=== PATIENT | female | born 1990 | race Caucasian/White ===

== ENCOUNTER → 2017-09-11 16:00 | Outpatient (CLI) | payer MEDICAID, SELFPAY ==
[2017-09-12 13:52] LABS: Group B Strep DNA By PCR Negative (Negative); Internal Control PASS; Probe Check PASS; Specimen Processing Control PASS
== END ==
PROVIDERS: Visit Provider Obstetrics & Gynecology
DX: Z36.85 Encounter for antenatal screening for Streptococcus B (principal)
CPT/HCPCS: 87081; 87653

== ENCOUNTER 2017-10-03 06:40 | Inpatient (IN) | payer MEDICAID, SELFPAY ==
[2017-10-03] MEDS: Lactated Ringers 1,000 ML 50 ML IV (07:20)
[2017-10-03 07:46] VITALS: BMI 37.7
[2017-10-03 07:48] LABS: Hematocrit 36.9 % (37-47); Hemoglobin 13.1 g/dl (12.0-15.0); Mean Corp Hgb Conc 35.5 g/gl (32-36); Mean Corpuscular Hgb 33.2 pg (27.0-32.0); Mean Corpuscular Volume 93.7 fL (81-99); Mean Platelet Vol. 11.4 fl (6.2-12.0); Platelet Count 148 K/mm3 (150-450); RBC Distribution Width CV 12.9 % (11.6-14.6); RBC Distribution Width SD 42.9 fl (35.1-43.9); Red Blood Count 3.94 M/mm3 (4.2-5.4); White Blood Count 12.3 K/mm3 (4.4-11.0)
[2017-10-03] MEDS: Oxytocin 30 units/NS 500 ml 30 UNITS/500 ML IV.SOLN IV (07:54)
[2017-10-03 07:55] LABS: Scan Indicated on CBC? Y/N NO
[2017-10-03] MEDS: fentaNYL-bupivacaine (epidural) 100 ML BAG EPIDURAL (10:50)
[2017-10-03] MEDS: Oxytocin 30 units/NS 500 ml 30 UNITS/500 ML IV.SOLN 334 UNITS IV (12:20)
--- NOTE | 2017-10-03 12:30 | PCM.OB.VAG ---
Vaginal Delivery Maternal Presentation: Elective Induction Method of Induction: Pitocin, Amniotomy Amniotic Membrane Rupture Type: Artificial Amniotic Fluid Description: Clear Final ERASMO: 10/09/17 Final ERASMO Source: US <20 weeks Gestational age: 39 Weeks and 1 Days Date of Procedure: 10/03/17 Pre-Operative Diagnosis: IUP Post-Operative Diagnosis: IUP, Posterior Presentation Surgery/ Procedure Performed: Spontaneous Vaginal Delivery Type of Anesthesia: Epidural Description of Procedure: Spontaneous vaginal delivery of a viable female with Apgars of 8/9 from an occiput posterior presentation with clear amniotic fluid and cord around the neck ?1 loose. No episiotomy or laceration. Sponge counts okay. Delivery physician: Scar Sanchez MD. Presentation: Vertex, ROP Placental Delivery Description: Spontaneous Placenta Disposition: [facility] Cord Vessel Description: 3 Vessels Cord Gases drawn per routine: ABG Cord Entanglement: Around neck x 1, loose Estimated Blood Loss: 250 cc Infant A gender: Female (1 minute): 8 (5 minute): 9 Episiotomy Description: None Laceration: None Medications given after delivery: IV Pitocin Complications: None
--- NOTE | 2017-10-03 12:34 | PCM.DCVAG ---
Discharge Diet: No Restrictions Discharge Activity: May Shower, May Take a Tub Bath May resume sexual activity in: 4-6 weeks Additional Activity Instructions:: Nothing in the vagina for 4-6 weeks. You may return to work/school in 6 weeks. Call your doctor if you observe: Fever of 101 or Higher, Inability to urinate, Inability to have a bowel movement, Using more than one pad per hour Additional Instructions: If you experience any of the following, contact your healthcare provider. Bleeding that soaks a pad every hour for 2 hours Unrelieved incision or abdominal pain Swelling, redness, discharge or bleeding from your incision or episiotomy site Your incision begins to separate Problems urinating (including inability to urinate or burning while urinating). Visual changes Severe headache Flu-like symptoms Pain or redness in one of both of your breasts Pain, warmth, tenderness or swelling in your legs, especially the calf area Frequent nausea and vomiting Symptoms of depression or anxiety If you experience any of the following, call 911 or go to the nearest Emergency Room. Chest pain Problems breathing Seizure activity Partial or complete paralysis of a body part, slurred speech, weakness or drooping of the face, or a sudden inability to walk or hold your balance Allergies/Adverse Reactions: Allergies No Known Allergies Allergy (Verified 10/03/17 07:46) Please Follow Up With: Scar Sanchez MD - [phone] When: Call to make an appointment with your doctor in 6 weeks. Primary Care Physician: Care Physician,No Primary [Primary Care Provider] -
--- NOTE | 2017-10-03 12:36 | DCINST_ITS ---
Discharge Diet: No Restrictions Discharge Activity: May Shower, May Take a Tub Bath May resume sexual activity in: 4-6 weeks Additional Activity Instructions:: Nothing in the vagina for 4-6 weeks. You may return to work/school in 6 weeks. Call your doctor if you observe: Fever of 101 or Higher, Inability to urinate, Inability to have a bowel movement, Using more than one pad per hour Additional Instructions: If you experience any of the following, contact your healthcare provider. * Bleeding that soaks a pad every hour for 2 hours * Unrelieved incision or abdominal pain * Swelling, redness, discharge or bleeding from your incision or episiotomy site * Your incision begins to separate * Problems urinating (including inability to urinate or burning while urinating) . * Visual changes * Severe headache * Flu-like symptoms * Pain or redness in one of both of your breasts * Pain, warmth, tenderness or swelling in your legs, especially the calf area * Frequent nausea and vomiting * Symptoms of depression or anxiety If you experience any of the following, call 911 or go to the nearest Emergency Room. * Chest pain * Problems breathing * Seizure activity * Partial or complete paralysis of a body part, slurred speech, weakness or drooping of the face, or a sudden inability to walk or hold your balance Allergies/Adverse Reactions: Allergies No Known Allergies Allergy (Verified 10/03/17 07:46) Please Follow Up With: Scar Sanchez MD - [phone] When: Call to make an appointment with your doctor in 6 weeks. Primary Care Physician: Care Physician,No Primary [Primary Care Provider] -
[2017-10-03] MEDS: Oxytocin 30 units/NS 500 ml 30 UNITS/500 ML IV.SOLN 167 UNITS IV (12:50)
[2017-10-03 15:08] VITALS: BP 122/74; PULSE 64; RESP 16; TEMP 36.6; O2SAT 99
[2017-10-03 16:00] VITALS: BP 106/57; PULSE 69; RESP 18; TEMP 36.6
[2017-10-03] MEDS: Ibuprofen 600 MG Tablet PO (17:34)
--- NOTE | 2017-10-03 18:09 | NURSING ---
1750 Patient states she no longer wants to breast feed, switching to bottle. Huddle done. Patient chooses to bottle feed.
[2017-10-03 20:00] VITALS: BP 112/55; PULSE 75; RESP 16; TEMP 36.7; O2SAT 98
[2017-10-03] MEDS: Acetaminophen 500 MG Tablet 1000 MG PO (21:05)
[2017-10-04 00:40] VITALS: BP 107/55; PULSE 71; RESP 18; TEMP 36.6; O2SAT 99
[2017-10-04] MEDS: Ibuprofen 600 MG Tablet PO ×3 (00:49→13:46)
[2017-10-04 04:15] VITALS: BP 104/59; PULSE 64; RESP 18; TEMP 36.4; O2SAT 98
[2017-10-04 07:25] VITALS: BP 113/89; PULSE 76; RESP 18; TEMP 36
--- NOTE | 2017-10-04 12:11 | PCM.PN.OB ---
Subjective: Patient without complaints. Tolerating diet well. Breast-feeding going well. Wants to go home today. - Physical Exam Vital Signs Temp Pulse Resp BP Pulse Ox 96.8 F L 76 18 113/89 H 98 10/04/17 07:25 10/04/17 07:25 10/04/17 07:25 10/04/17 07:25 10/04/17 04:15 Oxygen Delivery Method Room Air Weight: 241 lb Body Mass Index (BMI) 37.7 Intake and Output for Last 24 Hours 10/02/17 10/03/17 10/04/17 23:59 23:59 23:59 Intake Total 450 / 450 Output Total 1150 / 1150 Balance -700 / -700 Medical Necessity - Tobacco Use Smoking Status: Current every day smoker Assessment/Plan Doing well. Will release to home with routine instructions.
[2017-10-04 13:45] VITALS: BP 97/55; PULSE 79; RESP 18; TEMP 36.2
--- NOTE | 2017-10-04 14:56 | CASEMGMT ---
Social Work Assessment Labor and Delivery Unit Date of Referral: 10/03/2017 Time of Referral: 234 Referred By: Dr. Shukla, reeling machine setup operator Date of Intervention: 10/04/2017 Time of Intervention: 1245 Reason for Referral: maternal mental health, history of depression History obtained from: medical record and patient/mother of baby (MOB) Household composition: MOB, MOBs children and MOBs sister. MOB reports home situation is safe and adequate. Patient's parent/guardian status: MOB and father of baby (FOB) are not currently together. MOB reports broke up with FOB, Dov Esparza a month ago. MOB had been with FOB for 5 years. MOB reports FOB is the father to and to MOBs second child. MOBs first child has a different father, who MOB has shared parenting with that alfredo father. MOBs minor children are: Ap Saucedo (born 01/2014) and daughter Herrera (born 02/2011). Medical History: MOB is G3, P2 to 3, seeking care at 6 weeks gestation. Babys weight is 7 pounds 1 ounce, with Apgars 8 and 9 at 1 and 5 minutes of life. Educational Status: MOB graduated high school, is able to read, to write and to understand what is read. 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 SOBEIDA has 13 weeks of short term disability available for maternity leave. MOB reports will start to get payments soon. In the meantime, MOBs mother, FOB, and MOBs sister (with whom SOBEIDA lives) are helping out financially. Supplies: MOB reports to have car seat, pack-n-play with bassinet attachment, crib, clothing, diapers, wipes, and bottles. MOB reports to need formula, but that MOBs mom will help out until MOB can get on WIC. Childcare/Caregiver(s): MOB Transportation: No reported issues. Programs/Agencies Involved: MOB has Medicaid through [facility], plans to apply for food, and plans to reestablish with WIC. MOB reports was on WIC but missed some appointments during . MOB reports current counseling with Vincent Cee at [facility] in [place]. Children Services/Legal Issues: MOB denies any past or present involvement for self with children services. Behavioral Health Issues: MOB reports history of depression after first daughter was born. MOB was a teenager at the time. MOB reports no depression after son was born however. MOB reports to have some history of anxiety. MOB denies any history or current thoughts of suicide or harm to others. MOB reports was in counseling at [facility] for a year, and just about a month ago reestablished care due to some stressors/lifes changes happening in MOBs life. It is reported that MOBs mother has a history of depression after each . MOB denies any alcohol or illicit drug use during this . MOB reports has tried marijuana in the past. MOB reports did smoke cigarettes during . MOB had negative drug screens during on 02-16-2017 and 03-15-17. Family/Social Stressors: MOB reports she and FOB broke up a month ago after 5 years of being in a relationship. MOB reports there were some infidelity issues on FOBs part, as well as MOB suspecting drug use in the FOB. MOB reports it has been a relief not to have FOB in daily life, but that FOB still comes to the house to visit the kids. MOB reports will only allow visits at MOBs home as MOB wants to be able to monitor interactions and visits. MOB reports safety of her kids are more important than hurting FOBs feelings. Support Systems: MOB reports to have a large support network from family. MOB reports to live in close proximity to several family members, including MOBs mother. MOB reports MOBs mom and best friend BJ are MOBs biggest practical helpers and MOBs sisters, best friend and counselor are emotional supporters. However, MOB reports it is MOBs mother that encouraged MOB to restart counseling in light of MOBs breakup with FOB and risk for depression. Depression/Shaken Baby/Safe Sleeping: MOB aware of and able to identify safe sleeping and shaken baby prevention. MOB listened to education on depression and anxiety, risk factors present and importance of seeking out help and support. ASSESSMENT: MOB pleasant, friendly, cooperative, and nondefensive during social work visit. MOB spontaneous in conversation, bright affect, and happy mood. MOB able to identify positive support system, is aware of risk for depression and with the help and support of MOBs mom has already started counseling. MOB reports to have a positive larsen with baby. This life underwriter observed MOB attentive to infant, smiling, gazing, touching baby, and overall appropriate. MOB reports to have needed supplies, and that MOBs mom will help MOB get some formula until MOB can get into WIC. MOB accepting of resource information offered to MOB this date. Note, MOBs mother was present for part of social work visit with MOBs permission. MOBs mother presents as supportive and encouraging of MOB. Intervention: Provided MOB with information on depression and anxiety, tips on self-care, online supports, and local supports. Provided with [facility] list of social research assistant agencies. Provided WIC application. PLAN: MOB and baby to home with family support in place. MOB has mental health counselor and states intention to follow through after discharge. No other services requested or indicated. -KRIS Rosenbaum, AJ
== END 2017-10-04 14:35 | disposition home or self-care (01) | DRG 373 ==
PROVIDERS: Admitting Provider Obstetrics & Gynecology; Visit Provider Obstetrics & Gynecology
DX: O69.81X0 Labor and delivery complicated by cord around neck, without compression, not applicable or unspecified (principal); O99.334 Smoking (tobacco) complicating childbirth; F17.200 Nicotine dependence, unspecified, uncomplicated; Z3A.39 39 weeks gestation of pregnancy; Z37.0 Single live birth
CPT/HCPCS: 59025; 59050; 85027; 86850; 86900; 99218; J7120; G0378

== ENCOUNTER 2019-03-08 10:18 | Emergency (ER) | payer SELFPAY ==
[2019-03-08 10:19] VITALS: BP 124/74; PULSE 116; RESP 20; TEMP 36.8; O2SAT 98; BMI 37.2
--- NOTE | 2019-03-08 10:39 | ED.VISSUMM ---
- ER Visit Summary Date of Service: 03/08/19 Chief Complaint: Low back pain History of Present Illness: The patient is a 28 F no seen in past medical history and only prior surgical history is tonsillectomy. She is never had any back or neck surgery. She states since morning she is low back pain. Now is radiating to both legs. She denies any bowel or bladder incontinence. She is urinating normally. She denies any dysuria or fever. Physical Examination: Signs are stable and afebrile. H EENT exam unremarkable. Neck nontender. Lungs clear to auscultation bilaterally. Heart regular rate and rhythm no murmur. Abdomen soft nontender normal bowel sounds no peritoneal signs. Back exam cervical thoracic spine nontender. Lumbar spine joint nontender. There is no ecchymosis or bruising. No signs of trauma. No redness or warmth. No bony abnormality. Paraspinal soft tissue tenderness over the lower lumbar spine consistent with paraspinal muscle spasm. She is moving all 4 extremities. They are neurovascularly intact. Dorsi plantarflexion intact. She has normal bed and breakfast cook strength. She has normal sensation. There is no cauda equina or saddle anesthesia. She has normal medial thigh sensation. Patient has a positive straight leg raise both on the left and right leg when I asked her to actively do it she will raise him about 15 degrees because of pain an MRI doing at 15 to 30 degrees she has pain she states her pain down her buttocks and posterior hamstrings. Neurologically she is awake alert with no focal motor or sensory deficits. Test Results: Patient reportedly had an MRI done of her lumbar spine at [facility] on I am trying to get those results. Plain films done in outside facility showed no acute abnormality. A lumbar spine MRI done within the last 2 days showed degenerative disc disease and annular bulging of the L3-4 and disc degeneration at L4-5 and L5-S1. The spinal canal was patent and there is no signs of cauda equina. No abscess. I did discuss all these results with the patient and her significant other. Emergency Department Course and Treatment: Patient treated with p.o. Valium for muscle spasm and Toradol IM for pain. Her last menstrual period was this past week. Treatment Plan: Medrol Dosepak. Limited Motrin for pain. Valium for muscle relaxant. Follow-up with orthopedics. Disposition: Discharge Impression: Neck pain secondary to degenerative disc disease This note was generated with [employer] dictation software. It may contain incorrect words, spelling, and punctuation that were not noted in review of the chart prior to signing ED Disposition - Plan for ED Patient: Referrals: Care Physician,No Primary [Primary Care Provider] -
[2019-03-08] MEDS: diazePAM 5 MG Tablet 10 MG PO (11:00)
[2019-03-08] MEDS: Ketorolac 60 MG/2 ML Vial IM (11:00)
--- NOTE | 2019-03-08 11:14 | ED.DEP ---
ED Disposition - Plan for ED Patient: Disposition: Home or Assisted Living Instructions: BACK AND NECK PAIN, General Prescriptions: MethylPREDNISolone DosePak [Medrol DosePak] 4 mg PO UD #1 box Prescription Printed Diazepam [Valium] 5 mg PO 4X/DAY PRN PRN 7 Days #20 tab PRN Reason: Muscle Spasm Prescription Printed Referrals: Jas Avalos DO [STAFF PHYSICIAN] - As soon as possible Additional Instructions: Valium for muscle spasms. Medrol Dosepak to decrease the inflamed disks in your lower back. Motrin for pain and Tylenol. Follow-up with a orthopedic back doctor or neurosurgeon for further evaluation of your degenerative disc disease.
== END 2019-03-08 11:37 | disposition home or self-care (01) ==
PROVIDERS: Emergency Provider Emergency Medicine
DX: M51.37 Other intervertebral disc degeneration, lumbosacral region (principal); Z72.0 Tobacco use
CPT/HCPCS: 96372; 99283

== ENCOUNTER 2023-02-02 13:00 | Emergency (ER) | payer OTHER, SELFPAY ==
[2023-02-02 13:01] VITALS: BP 115/70; PULSE 108; RESP 18; TEMP 36.1; O2SAT 100; BMI 39.6
[2023-02-02 13:06] VITALS: BP 115/70; PULSE 81; RESP 16; TEMP 36.6
--- NOTE | 2023-02-02 14:05 | EDS_ITS ---
HPI History of Present Illness Chief Complaint: Abscess Informant: patient Narrative Narrative: Patient has a history of skin abscesses and she has 3 more. 1 on the right abdominal wall, 1 in the left groin those have been there for maybe a week or less, and the largest 1 in the right medial thigh has been there for only 2 days and is very big and sore. Not draining spontaneously. No fevers or chills or other systemic symptoms. [facility] Medical History (Updated 02/02/23 @ 14:[address] Ike Helms MD) Hidradenitis suppurativa Stomach ulcer Home Medications amoxicillin 875 mg-potassium clavulanate 125 mg tablet 1 tab PO Q12H 10 days #20 tabs 01/25/23 [Rx Last Taken Unknown] sulfamethoxazole 800 mg-trimethoprim 160 mg tablet 1 tab PO BID #20 TABLETS 02/02/23 [Rx Last Taken Unknown] Allergy/AdvReac Type Severity Reaction Status Date / Time No Known Allergies Allergy Verified 02/02/23 13:04 Surgical History (Updated 01/25/23 @ 10:18 by Brigid Lockwood) History of tonsillectomy Social History Smoking Status: Current every day smoker tobacco type: cigarettes alcohol intake: never ROS ROS ED Constitutional Constitutional ED: Denies chills or fever(s) Integumentary Reports abscess EXAM Physical Exam Const Vital Signs: 02/02/23 13:01 02/02/23 13:06 Temperature 96.9 F L 97.9 F Temperature Source Temporal Oral Pulse Rate 108 H 81 Respiratory Rate 18 16 Blood Pressure 115/70 115/70 Blood Pressure Mean 85 85 Pulse Ox 100 Oxygen Delivery Method Room Air Positive well nourished, well developed and obese General Appearance ED: well developed and NAD Nutritional Appearance: obese HEENT Reports moist mucous membranes Eyes PERRL and EOMs intact bilaterally Neck supple Resp normal respiratory effort Effort and Inspection: able to speak in complete sentences Neuro oriented x3, CN's II-XII intact bilaterally and no sensory deficits noted Psych mental status grossly normal Skin Skin Narrative: 2 relatively small abscesses, 1 or 2 cm in diameter, right abdominal wall, and left groin, both draining pus spontaneously and tender without surrounding cellulitis. Larger one 4 cm in diameter with significant surrounding cellulitis medial right proximal thigh without spontaneous drainage. All compartments soft and nondistended. Abdomen benign otherwise. MDM MDM MDM Narrative Medical decision making narrative: The other 2 abscesses had spontaneously opened and squeezed by the patient, cleansed and dressed by nursing, and they also cleansed and dressed the 1 that we open see the procedure note. Discharged on Bactrim. Discussed pulling the packing out in 2 days if the cellulitis is improving which I would expect it would. Procedures Other Procedures Procedure(s): Complex abscess I and D: Informed consent obtained. Right proximal thigh prepped and draped in a sterile fashion with chlorhexidine, locally anesthetized with 6 cc of plain 1% lidocaine, then prepped again with chlorhexidine and incised with a #10 blade centrally, large amount of purulent material was expressed, the area was deloculated bluntly with hemostats briefly, cavity was irrigated with sterile saline, and packed with quarter inch gauze, dressed with bacitracin tolerated well no complications. Discharge Plan Triage Chief Complaint: Abscess ED Provider: Ike Helms Dx/Rx/DC Orders Clinical Impression: Cutaneous abscess of abdominal wall, Cutaneous abscess of groin, Cutaneous abscess of right lower extremity Instructions: ED Abscess Incision And Drainage Prescriptions: New sulfamethoxazole-trimethoprim [sulfamethoxazole-trimethoprim] 800-160 mg tablet 1 tab PO BID Qty: 20 0RF No Action amoxicillin-pot clavulanate 875-125 mg tablet 1 tab PO Q12H 10 Days Qty: 20 0RF Primary Care Provider: Care Physician,No Primary Referrals: Care Physician,No Primary [Primary Care Provider] - Doctor,Your [Non-Staff] - 3-5 Days if not improving Disposition Disposition: Home, Self Care
[2023-02-02] MEDS: Lidocaine 1% (20 ml mdv) 20 ML Vial INFILT (14:13)
[2023-02-02] MEDS: Smz/Tmp Ds Tablet 1 TABLET PO (14:13)
== END 2023-02-02 15:44 | disposition home or self-care (01) ==
LOC: ED 14:28
PROVIDERS: Emergency Provider Emergency Medicine; Visit Provider Emergency Medicine
DX: L02.214 Cutaneous abscess of groin (principal); L02.415 Cutaneous abscess of right lower limb; L02.211 Cutaneous abscess of abdominal wall; E66.9 Obesity, unspecified; F17.210 Nicotine dependence, cigarettes, uncomplicated
CPT/HCPCS: 10061; 10060; 99283

== ENCOUNTER 2025-01-30 10:03 | Emergency (ER) | payer SELFPAY ==
[2025-01-30 10:03] VITALS: BP 121/73; PULSE 78; RESP 14; TEMP 36.7; O2SAT 98; BMI 41.1
--- NOTE | 2025-01-30 10:21 | US_ITS ---
PROCEDURE: GALLBLADDER 01/30/2025 REASON FOR EXAM: PAIN TECHNIQUE: Procedure Code: USGB Modality: US Procedure: GALLBLADDER COMPARISON: None FINDINGS: Liver: Echogenic right hepatic lobe mass measuring 1.1 x 1.2 x 0.9 cm Gallbladder: Gallbladder measures 7 cm. No evidence of any pericholecystic fluid or cholelithiasis. Sharma's sign is not elicited. Common bile duct: Normal measures 2.7 mm. Pancreas: Visualized portions are sonographically unremarkable. Other: None US/Gallbladder IMPRESSION: Echogenic right hepatic lobe mass measuring 1.2 cm findings could be related to focal fat deposition. Attention on follow-up imaging is recommended as clinically indicated. Gallbladder is unremarkable without any pericholecystic fluid or cholelithiasis . Reading Location: [id number]
--- NOTE | 2025-01-30 10:23 | EDS_ITS ---
HPI HPI - GI History of Present Illness Chief Complaint: Abd Pain Narrative Narrative: 34-year-old female who denies significant past medical history presents with her because she states she has been sick for the last few days. She is nauseated but is only dry heaving. She denies fevers or chills, no dysuria or hematuria. She is been having right upper quadrant pain radiating to her back as well as right lower quadrant pain. Denies any problems with bowel movements, no diarrhea. While at urgent care, she states that they tested her urine which was negative, but sent her in with concern for a gallbladder attack or appendicitis. She denies any exacerbating or alleviating factors except for leaning back. She describes her pain more as dull and achy but becomes sharp and stabbing in the front with palpation. No prior abdominal surgeries. She states she delivered her children vaginally. [facility] Medical History Hidradenitis suppurativa Stomach ulcer Home Medications ?Medication ?Instructions ?Recorded ?Last Taken ?Type dicyclomine 20 mg tablet 20 mg PO TID PRN abdominal p ain 01/30/25 Unknown Rx #20 tabs ondansetron 4 mg disintegrating 4 mg PO Q8H PRN PRN Na usea #15 tabs 01/30/25 Unknown Rx tablet Allergy/AdvReac Type Severity Reaction Status Date / Time No Known Allergies Allergy Verified 01/30/25 10:04 Surgical History History of tonsillectomy Social History Smoking Status: Current every day smoker tobacco type: cigarettes alcohol intake: never ROS ROS ED ROS Narrative Review of systems positive for nausea and dry heaving. No fever, no chills. Positive right upper quadrant abdominal pain as well as right lower quadrant abdominal pain. Right upper quadrant abdominal pain radiates towards back and described as dull and achy but sharp and stabbing in the front with palpation. EXAM Physical Exam Narrative Exam Narrative: Afebrile. Vital signs noted. Nontoxic-appearing. Cardiovascular examination feels regular rate and rhythm. Lungs are clear to auscultation bilaterally. The abdomen is soft with tenderness to palpation in the right upper quadrant, questionable Sharma sign. Positive tenderness right lower quadrant near McBurney's point but negative heel strike, no peritoneal signs. No guarding or rebound. Neurological examination nonfocal, nonlateralizing. Const Vital Signs: 01/30/25 10:03 01/30/25 12:11 Temperature 98.1 F Temperature Source Temporal Pulse Rate 78 80 Respiratory Rate 14 16 Blood Pressure 121/73 H 124/71 H Blood Pressure Mean 89 88 Pulse Ox 98 98 Oxygen Delivery Method Room Air MDM MDM MDM Narrative Medical decision making narrative: The differential diagnosis includes but not limited to acute appendicitis versus acute cholecystitis versus gallstone pancreatitis versus colitis versus diverticulitis versus nonspecific abdominal pain. Patient is afebrile here. Comprehensive workup was pursued including CBC, CMP, and lipase as well as urinalysis and serum test. I do feel that she merits both CT scan for a broader scope to look at her colon to see if she may have a diverticulitis or even an acute appendicitis, as well as right upper quadrant pain and hurting ultrasound to rule out acute cholecystitis. She was administered morphine and ondansetron. I reviewed her laboratory work and she has normal white count of 7.9 with hemoglobin normal at 14.7, hematocrit 42.0, platelet count normal at 260. CMP is grossly unremarkable with normal LFTs, lipase normal at 32 so I doubt pancreatitis. Serum is negative. Urinalysis is negative for infection with 0-5 WBCs. I do not feel antibiotics are indicated. I reviewed the radiology reports for the CT of the abdomen and pelvis which shows no acute process, no diverticulitis gallbladder ultrasound also shows no evidence of pericholecystic fluid or acute cholecystitis. Upon repeat examination, she states she is feeling improved. At this point in time, I do not feel she requires admission or surgical consultation emergently. I think she has more nonspecific abdominal pain. She was written prescriptions for ondansetron and dicyclomine. Return instructions to the emergency department were reviewed. Disposition is discharged home in stable condition. History & Record Review Discussion w/independent historian: Patient and Family () Lab Data Attestation: I reviewed the patient's lab results. Labs: Laboratory Results - last 24 hr 01/30/25 01/30/25 10:30 12:50 WBC 7.9 RBC 4.65 Hgb 14.7 Hct 42.0 MCV 90.3 MCH 31.6 MCHC 35.0 RDW Std Deviation 38.4 RDW Coeff of Holly 11.7 Plt Count 260 MPV 10.6 Immature Gran % (Auto) 0.500 Neut % (Auto) 66.4 Lymph % (Auto) 25.0 [place] % (Auto) 6.3 Eos % (Auto) 1.4 Baso % (Auto) 0.4 Absolute Neuts (auto) 5.3 Absolute Lymphs (auto) 1.98 Nucleated RBC % 0 Sodium 139 Potassium 3.8 Chloride 107 Carbon Dioxide 21.1 Anion Gap 11 BUN 8 Creatinine 0.73 Estim Creat Clear Calc 147.69 Est GFR (MDRD) Non-Af 112 BUN/Creatinine Ratio 11.6 Glucose 97 Calcium 8.8 Total Bilirubin 0.34 AST 18 ALT 20 Alkaline Phosphatase 66 Total Protein 6.5 Albumin 3.9 Globulin 2.7 Albumin/Globulin Ratio 1.5 Lipase 32 Serum , Qual NEGATIVE Urine Color Straw Urine Clarity Clear Urine pH 7.0 Ur Specific [place] 1.005 Urine Protein 15 H Urine Glucose (UA) Normal Urine Ketones Negative Urine Occult Blood Negative Urine Nitrite Negative Urine Bilirubin Negative Urine Urobilinogen Normal Ur Leukocyte Esterase Negative Urine RBC 0 SEEN Urine WBC 0-5 SEEN Ur Squamous Epith Cells 0-5 SEEN Urine Bacteria RARE Urine Mucus 0 SEEN Radiography Diagnostic Testing: Clinical Impression(s) from Imaging Studies Gallbladder Ultrasound 01/30/25 10:21 IMPRESSION: Echogenic right hepatic lobe mass measuring 1.2 cm findings could be related to focal fat deposition. Attention on follow-up imaging is recommended as clinically indicated. Gallbladder is unremarkable without any pericholecystic fluid or cholelithiasis. Reading Location: [id number] Abdomen/Pelvis CT 01/30/25 11:45 IMPRESSION: No acute abnormality Reading Location: [id number] Discharge Plan Triage Chief Complaint: Abd Pain ED Provider: Tyrone Medina Dx/Rx/DC Orders Clinical Impression: Right upper quadrant abdominal pain, Right lower quadrant abdominal pain, Nausea Instructions: ED Abdominal Pain Unkn Cause Fem Prescriptions: New ondansetron 4 mg tablet,disintegrating 4 mg PO Q8H PRN PRN (Reason: Nausea) Qty: 15 0RF dicyclomine 20 mg tablet 20 mg PO TID PRN (Reason: abdominal pain) Qty: 20 0RF Primary Care Provider: Care Physician,No Primary Referrals: Dov De Los Santos MD [Med Staff - Active Staff, Family Practice] - As soon as possible Care Physician,No Primary [Primary Care Provider, Medical] Activity Restrictions/Additional Instructions: Medication as directed. Start a clear liquid diet and advance as tolerated. Return with increased pain, fever, new or worsening symptoms. Print Language: Mexican Disposition Disposition: Home, Self Care
[2025-01-30] MEDS: 0.9% Normal Saline (1000mL) 1,000 ML 999 ML IV (10:41)
[2025-01-30 11:05] LABS: Hematocrit 42.0 % (37-47); Hemoglobin 14.7 g/dL (12.0-15.0); Immature Granulocytes Count 0.040 X10^3/uL (0.0-0.0); Mean Corp Hgb Conc 35.0 g/dL (32-36); Mean Corpuscular Volume 90.3 fL (81-99); Mean Platelet Vol. 10.6 fl (6.2-12.0); NRBC Flagged by Analyzer 0 % (0-5); Platelet Count 260 K/mm3 (150-450); RBC Distribution Width CV 11.7 % (11.6-14.6); RBC Distribution Width SD 38.4 fl (35.1-43.9); Red Blood Count 4.65 M/mm3 (4.2-5.4); White Blood Count 7.9 K/mm3 (4.4-11.0)
[2025-01-30 11:23] LABS: Internal QC Validated? YES +Cl - CLEAR BKGD; Pregnancy, Serum, hCG Quali. NEGATIVE Negative; Record Kit Lot#, Serum Preg. 964736
--- NOTE | 2025-01-30 11:45 | CT_ITS ---
PROCEDURE: ABDOMEN/PELVIS W IV CONT ONLY 01/30/2025 REASON FOR EXAM: RIGHT LOWER QUADRANT PAIN TECHNIQUE: Procedure Code: CTABDPELIV Modality: CT Procedure: ABDOMEN/PELVIS W IV CONT ONLY Coronal and Sagittal reconstruction series were provided. CONTRAST: Isovue 370 VOLUME: 95 mL One or more dose reduction techniques were used (e.g., Automated exposure control, adjustment of the mA and/or kV according to patient size, use of iterative reconstruction technique. RADIATION DOSE SUMMARY: CTDlvol: 34 mGy DLP: 1402 mGycm COMPARISON: Ultrasound of the same day FINDINGS: Lung bases: Clear Liver: Liver is non cirrhotic. No mass is seen. The hyperechoic focus seen by ultrasound has no correlate on CT. This may represent some focal fat on that exam. Gallbladder: Normal Spleen: Normal Pancreas: Normal Adrenals: Normal Kidneys: Normal Bladder: Normal Reproductive Organs: Uterus and ovaries are normal Bowel: The stomach, small bowel and colon appear normal. Appendix: Normal Lymph nodes: None appear enlarged. Vasculature: Normal Peritoneum / Retroperitoneum: No free air, free fluid or mass Bones: Normal CT/Abdomen/Pelvis W IV Cont ONLY IMPRESSION: No acute abnormality Reading Location: [id number]
[2025-01-30 12:11] VITALS: BP 124/71; PULSE 80; RESP 16; O2SAT 98
[2025-01-30 12:12] LABS: AST(SGOT) 18 U/L (<=31); Alanine Aminotransfer ALT/SGPT 20 U/L (<=34); Albumin, Serum 3.9 g/dL (3.5-5.0); Alkaline Phosphatase 66 U/L (35-104); Anion Gap 11 (5-15); BUN 8 mg/dL (4-19); BUN/Creat Ratio 11.6 RATIO (10-20); Calcium,Total 8.8 mg/dL (7.6-11.0); Carbon Dioxide 21.1 mmol/L (21.0-32.0); Chloride 107 mmol/L (98-108); Estimated Creatinine Clearance 147.69 ml/min (50-250); Globulin 2.7 g/dL (2.2-4.2); Glucose 97 mg/dL (70-99); Lipase 32 U/L (13-75); Potassium 3.8 mmol/L (3.3-5.1)
[2025-01-30 12:53] LABS: Mucous, Urine 0 SEEN /hpf (<or=2+); Red Blood Cells-Urine 0 SEEN /hpf (0-5)
[2025-01-30 12:54] LABS: Color, Urine Straw (Yellow); Glucose, Dipstick Normal (Normal); Ketone-Dipstick Negative (Negative); Leukocyte Esterase-Dipstick Negative /ul (Negative); Nitrite-Dipstick Negative (Negative); Occult Blood-Urine Negative /ul (Negative); Protein-Dipstick 15 mg/dl (Negative); Specific Gravity, Urine 1.005 (1.002-1.030); Urine Bilirubin Dipstick Negative (Negative)
[2025-01-30 13:13] LABS: Squamous Epithelial Cells - UA 0-5 SEEN /hpf (5-10)
[2025-01-30 14:00] VITALS: BP 99/60; PULSE 78; RESP 16; O2SAT 99
== END 2025-01-30 14:11 | disposition home or self-care (01) ==
PROVIDERS: Emergency Provider Emergency Medicine; Visit Provider Emergency Medicine
DX: R10.11 Right upper quadrant pain (principal); R11.0 Nausea; R10.31 Right lower quadrant pain; F17.210 Nicotine dependence, cigarettes, uncomplicated
CPT/HCPCS: 74177; 76705; 80053; 81001; 83690; 84703; 85025; 96361; 96374; 96375; 99283; Q9967; A4216; J2405

== ENCOUNTER 2025-05-11 10:28 | Emergency (ER) | payer SELFPAY ==
[2025-05-11 10:30] VITALS: BP 124/56; PULSE 72; RESP 18; TEMP 36.3; O2SAT 100; BMI 41.3
--- NOTE | 2025-05-11 10:43 | ED.VIS.GI ---
HPI HPI - GI History of Present Illness Chief Complaint: Abd Pain Informant: patient, family and EMS Narrative Narrative: Patient is a 34-year-old female with no significant PMHx presenting to the ED via EMS with severe abdominal and rectal pain. - Pain began just prior to arrival, just after having an unremarkable bowel movement. Pain localized to the lower abdomen, lower back, and rectal area, described as worse than contractions. - Similar pain occurred 2 days ago but resolved within 10 minutes. - Denies abd or anal pain during bowel movement or dysuria. - Currently, abdominal pain has significantly improved, but anorectal pain with coughing. - No history of abdominal surgeries or colonoscopy. Does not have a regular PCP. - Reports nausea; EMS administered a sublingual antiemetic. PFSH PFSH Medical History Hidradenitis suppurativa Stomach ulcer Home Medications ?Medication ?Instructions ?Recorded ?Last Taken ?Type ondansetron 4 mg disintegrating 4 mg PO Q8H PRN PRN Nausea #15 tabs 01/30/25 Unknown Rx tablet dicyclomine 20 mg tablet 20 mg PO Q6H PRN PRN abdominal 05/11/25 Unknown Rx discomfort #12 tabs Allergy/AdvReac Type Severity Reaction Status Date / Time No Known Allergies Allergy Verified 05/11/25 10:33 Family History no significant family his Surgical History History of tonsillectomy Social History Smoking Status: Current every day smoker tobacco type: cigarettes alcohol intake: never ROS ROS ED Constitutional Constitutional ED: Denies chills or fever(s) Eyes Eyes: Denies change in vision or diplopia ENT ENT ED: Denies rhinorrhea or sore throat Cardiovascular Cardiovascular: Denies chest pain or palpitations Respiratory/Chest Respiratory/Chest: Denies cough or dyspnea Gastrointestinal Gastrointestinal: Reports abdominal pain and nausea; Denies diarrhea or vomiting Genitourinary Genitourinary ED: Denies dysuria or hematuria Musculoskeletal Musculoskeletal: Denies back pain or neck pain Integumentary Denies abscess or rash Neurologic Neurologic: Denies headache(s), paresthesias or weakness Psychiatric Psychiatric: Denies suicidal thoughts EXAM Physical Exam Const Vital Signs: 05/11/25 10:30 05/11/25 12:28 Temperature 97.4 F L Temperature Source Oral Pulse Rate 72 66 Respiratory Rate 18 Blood Pressure 124/56 H 106/46 L Blood Pressure Mean 78 66 Pulse Ox 100 99 Oxygen Delivery Method Room Air Room Air Positive well nourished, well developed and obese General Appearance ED: well developed and NAD Nutritional Appearance: obese HEENT Reports moist mucous membranes normocephalic and atraumatic Eyes PERRL and EOMs intact bilaterally Neck full ROM and supple Resp normal respiratory effort and clear to auscultation bilaterally Cardio regular rate, regular rhythm and no murmurs GI non-distended GI Narrative: Minimally tender just right of suprapubic abdomen. No guarding or rebound tenderness. No tenderness at McBurney's point or other areas of the abdomen. Rectal performed with patient's permission and nurse immigration guard. There is a normal-appearing anus and no perianal tenderness or rash or lesion, there is no abscess or blood or fissure. Auscultation: normoactive bowel sounds Palpation: soft Back/Spine no CVA tenderness General Back: other FROM Extremity normal to inspection General Extremety ED: Negative for edema, pulses abnormal or tenderness General Extremity: Negative for edema or pulses abnormal Neuro oriented x3, CN's II-XII intact bilaterally and no sensory deficits noted Sensorium / Orientation: awake and alert Motor Exam: strength 5/5 throughout Psych thought process normal Skin no rashes or lesions noted and no wounds MDM MDM MDM Narrative Medical decision making narrative: Assessment: The patient is a 34-year-old female presenting for episodic lower abdominal pain radiating to the rectum and lower back that began after a bowel movement this morning. Pain has largely resolved on exam; anorectal exam is unremarkable and there is no pain with defecation to suggest fissure. Labs and urinalysis are unremarkable. CT abdomen/pelvis shows an ovulation-related follicle in the right ovary without enlargement, free fluid, hemorrhage, or other acute abnormality. Torsion is highly unlikely; therefore ultrasound not felt needed emergently. Overall presentation most consistent with functional colonic spasm. Plan: - Anorectal exam performed in ED - Prescribed dicyclomine for presumed colonic spasm - Referred to next unassigned PCP (Dr. Kruse) for outpatient follow-up - Discharged home in comfortable condition with return precautions explained Diagnostics: - Labs: basic blood panel and urinalysis unremarkable - CT abdomen/pelvis: small ovulation-related follicle in right ovary; no significant enlargement, free fluid, hemorrhage, or other acute findings. Independently reviewed by me, Ike Helms. Reevaluations: - Patient re-examined prior to discharge; pain minimal, no significant tenderness, comfortable with oral intake and ambulation Portions of this note were generated using voice recognition software ([email or web address] Dictation). I have reviewed the contents and every effort has been made to ensure accuracy; however, inadvertent errors in grammar, spelling, punctuation, or word choice may occur, that were not noted before signing the document and should not alter the intended clinical meaning. Lab Data Attestation: I reviewed the patient's lab results. Labs: Laboratory Results - last 24 hr 05/11/25 05/11/25 11:05 11:10 WBC 10.0 RBC 4.59 Hgb 14.4 Hct 41.4 MCV 90.2 MCH 31.4 MCHC 34.8 RDW Std Deviation 38.9 RDW Coeff of Holly 11.9 Plt Count 213 MPV 10.3 Immature Gran % (Auto) 0.700 Neut % (Auto) 75.7 H Lymph % (Auto) 15.7 L [place] % (Auto) 6.8 Eos % (Auto) 0.7 Baso % (Auto) 0.4 Absolute Neuts (auto) 7.6 Absolute Lymphs (auto) 1.57 Nucleated RBC % 0 Sodium 137 Potassium 3.8 Chloride 106 Carbon Dioxide 22.9 Anion Gap 8 BUN 9 Creatinine 0.68 L Estim Creat Clear Calc 159.15 Est GFR (MDRD) Non-Af 119 BUN/Creatinine Ratio 12.9 Glucose 94 Calcium 8.5 Serum , Qual NEGATIVE Urine Color Yellow Urine Clarity Sl. Cloudy Urine pH 5.0 Ur Specific [place] 1.025 Urine Protein 15 H Urine Glucose (UA) Normal Urine Ketones Negative Urine Occult Blood 10 H Urine Nitrite Negative Urine Bilirubin Negative Urine Urobilinogen Normal Ur Leukocyte Esterase 25 H Urine RBC 0 SEEN Urine WBC 0-5 SEEN Ur Squamous Epith Cells 5-10 SEEN Urine Bacteria 2+ Urine Mucus 1+ Radiography Diagnostic Testing: Clinical Impression(s) from Imaging Studies Abdomen/Pelvis CT 05/11/25 12:00 IMPRESSION: Probable ovulating right ovarian follicle. Otherwise no acute abdominopelvic abnormalities. Reading Location: [facility] Discharge Plan Triage Chief Complaint: Abd Pain ED Provider: Ike Helms Dx/Rx/DC Orders Clinical Impression: Lower abdominal pain, Follicular cyst of right ovary Instructions: Abdominal Pain Prescriptions: New dicyclomine 20 mg tablet 20 mg PO Q6H PRN PRN (Reason: abdominal discomfort) Qty: 12 0RF No Action ondansetron 4 mg tablet,disintegrating 4 mg PO Q8H PRN PRN (Reason: Nausea) Qty: 15 0RF Primary Care Provider: Care Physician,No Primary Referrals: Froilan Kruse MD [Med Staff - [employer]per, Family Practice] - As soon as possible Print Language: Yoruba Disposition Disposition: Home, Self Care
[2025-05-11 11:08] LABS: Red Blood Cells-Urine 0 SEEN /hpf (0-5)
[2025-05-11 11:12] LABS: Color, Urine Yellow (Yellow); Glucose, Dipstick Normal (Normal); Ketone-Dipstick Negative (Negative); Leukocyte Esterase-Dipstick 25 /ul (Negative); Nitrite-Dipstick Negative (Negative); Occult Blood-Urine 10 /ul (Negative); Protein-Dipstick 15 mg/dl (Negative); Specific Gravity, Urine 1.025 (1.002-1.030); Urine Bilirubin Dipstick Negative (Negative)
[2025-05-11 11:18] LABS: Hematocrit 41.4 % (37-47); Hemoglobin 14.4 g/dL (12.0-15.0); Immature Granulocytes Count 0.070 X10^3/uL (0.0-0.0); Mean Corp Hgb Conc 34.8 g/dL (32-36); Mean Corpuscular Volume 90.2 fL (81-99); Mean Platelet Vol. 10.3 fl (6.2-12.0); NRBC Flagged by Analyzer 0 % (0-5); Platelet Count 213 K/mm3 (150-450); RBC Distribution Width CV 11.9 % (11.6-14.6); RBC Distribution Width SD 38.9 fl (35.1-43.9); Red Blood Count 4.59 M/mm3 (4.2-5.4); White Blood Count 10.0 K/mm3 (4.4-11.0)
[2025-05-11 11:18] LABS: Mucous, Urine 1+ /hpf (<or=2+); Squamous Epithelial Cells - UA 5-10 SEEN /hpf (5-10)
[2025-05-11 11:36] LABS: Internal QC Validated? YES +Cl - CLEAR BKGD; Pregnancy, Serum, hCG Quali. NEGATIVE Negative
[2025-05-11 11:59] LABS: Anion Gap 8 (7-18); BUN 9 mg/dL (4-19); BUN/Creat Ratio 12.9 RATIO (10-20); Calcium,Total 8.5 mg/dL (7.6-11.0); Carbon Dioxide 22.9 mmol/L (20.0-29.0); Chloride 106 mmol/L (96-106); Estimated Creatinine Clearance 159.15 ml/min (50-250); Glucose 94 mg/dL (70-99); Potassium 3.8 mmol/L (3.5-5.1)
--- NOTE | 2025-05-11 12:00 | CT_ITS ---
PROCEDURE: ABDOMEN/PELVIS W IV CONT ONLY 05/11/2025 REASON FOR EXAM: LOWER ABD PAIN RADIATING INTO RECTUM TECHNIQUE: Procedure Code: CTABDPELIV Modality: CT Procedure: ABDOMEN/PELVIS W IV CONT ONLY Coronal and Sagittal reconstruction series were provided. CONTRAST: Isovue 370 VOLUME: 75 mL One or more dose reduction techniques were used (e.g., Automated exposure control, adjustment of the mA and/or kV according to patient size, use of iterative reconstruction technique. RADIATION DOSE SUMMARY: CTDlvol: 19.68 mGy DLP: 1516.71 mGycm COMPARISON: CT abdomen and pelvis January 30, 2025. FINDINGS: Lung bases: Clear. Liver: Unremarkable. A subcentimeter cyst in the right hepatic lobe which is too small to characterize on CT scan. Gallbladder: Unremarkable. No biliary dilation. Spleen: Unremarkable. Pancreas: Unremarkable. Adrenals: Unremarkable. Kidneys: No hydronephrosis. No nephrolithiasis. Bladder: Unremarkable. Reproductive Organs: Evidence of ovulating dominant right ovarian follicle with nearby small amount of free fluid. Bowel: No bowel wall thickening. No bowel obstruction. Appendix: Normal. Lymph nodes: No lymphadenopathy Vasculature: No aneurysm. Peritoneum / Retroperitoneum: Trace free fluid in the right lower quadrant, likely physiological. No free air. Bones: No acute bony elements. CT/Abdomen/Pelvis W IV Cont ONLY IMPRESSION: Probable ovulating right ovarian follicle. Otherwise no acute abdominopelvic abnormalities. Reading Location: [facility]
[2025-05-11 12:28] VITALS: BP 106/46; PULSE 66; O2SAT 99
--- NOTE | 2025-05-11 12:55 | CM.ED ---
Social work Reason for referral: no PCP/no insurance Referral source: case find SW entered patient's room, introducing self and role at [facility]. Patient was observed laying in bed and patient's and children were bedside. Patient confirmed lacking a PCP as well as insurance. Patient accepted resources of [facility] Provider Directory, Naty [place] information, and how to apply for Medicaid information. Patient denied need for further resources at this time. Joy Marquez, WEIGHER AND CHARGER, [employer] ATTENDANT
[2025-05-11 13:18] VITALS: BP 106/46; PULSE 66; RESP 18; TEMP 36.3; O2SAT 99
== END 2025-05-11 13:24 | disposition home or self-care (01) ==
PROVIDERS: Emergency Provider Emergency Medicine; Visit Provider Emergency Medicine
DX: N83.01 Follicular cyst of right ovary (principal); E66.9 Obesity, unspecified; F17.210 Nicotine dependence, cigarettes, uncomplicated
CPT/HCPCS: 74177; 80048; 81001; 84703; 85025; 96374; 99285; Q9967; A4216